=== PATIENT | male | born 1995 | race Caucasian/White ===

== ENCOUNTER 2023-03-06 07:29 | Outpatient (OUT) | payer BC, MEDICARE, MEDICAID, SELFPAY ==
--- NOTE | 2023-03-06 08:27 | CA_ITS ---
Patient Name: HERO DYE MR#: [id number] : 1995 Exam Date: 03/06/2023 Ordering Doctor: DR PING DONALDSON M.D. ECHOCARDIOGRAM REPORT PROCEDURE: CA ECHO DOPPLER COMPLETE INDICATIONS: PVCs COMPARISON: None. DESCRIPTION: COMPLETE ECHOCARDIOGRAM Real-time transthoracic echocardiography with 2D, M-mode, spectral and color flow Doppler performed. QUALITY: Technical quality was limited. LEFT VENTRICLE: Normal chamber size. Global left ventricular systolic function is normal. LV EF: Visual estimation of left ventricular ejection fraction is 55-60%. DIASTOLIC: ATRIAL SEPTUM: LEFT ATRIUM: Normal chamber size. RIGHT ATRIUM: Mild dilatation. RIGHT VENTRICLE: Normal chamber size. Normal right ventricular systolic function. TRICUSPID VALVE: Normal mobility and thickness. No stenosis with trivial regurgitation. No evidence of pulmonary hypertension. RVSP 22 mmHg MITRAL VALVE: Normal mobility and thickness. No evidence of mitral valve stenosis. There is no mitral annular calcification. Trivial mitral regurgitation. AORTIC VALVE: Normal trileaflet appearance. No visible sclerosis. Normal leaflet mobility. No evidence of aortic valve stenosis. No aortic regurgitation. AORTIC ROOT: Normal diameter and appearance. PULMONIC VALVE: Normal thickness and mobility. No stenosis. Trivial regurgitation. PERICARDIUM: No evidence of pericardial effusion. IVC: Not well visualized. PLEURA: CONCLUSION: 1. Normal ventricular systolic function. LVEF is 55 to 60%. 2. No significant valvular dysfunction. 3. No pericardial effusion. 4. Frequent PVCs noted during the exam. Adult Echocardiography Procedure Report Left Ventricle LVEDD (3.7 - 5.6 cm): 4.78 cm LVESD (2.2 - 4.0 cm): 3.34 cm LVIVS thickness (0.6 - 1.2 cm): 1.28 cm LVPW thickness (0.5 - 1.0 cm): 1.17 cm LVOT Max Gradient: 3.29 mm[Hg] LVOT Area (cm2): 0.91 m/s Peak Velocity (LVOT): 0.91 m/s Mean Velocity (LVOT): 0.60 m/s LVOT Diameter 2.20 cm Left Atrium LA Volume Index (2D A2C): 33.58 ml/m2 Left Atrium Systolic Dimension: 4.62 cm Mitral Valve MV E to A Ratio: 2.37 Mitral Valve A-Wave Peak Velocity: 0.40 m/s Mitral Valve E-Wave Peak Velocity: 0.95 m/s Right Ventricle RV Internal Diastolic Dimension: 4.00 cm Aorta AO Root Diam: 3.16 cm Aortic Valve AoV Area (Peak Joaquin): 2.70 cm2, 2.70 cm2 AoV Area (VTI): 2.64 cm2, 2.64 cm2 Peak Velocity(Antegrade Flow): 1.28 m/s Peak Gradient(Antegrade Flow): 6.57 mm[Hg] Mean Velocity(Antegrade Flow): 0.88 m/s Mean Gradient(Antegrade Flow): 3.43 mm[Hg] Velocity Time Integral: 27.82 cm Tricuspid Valve Peak Velocity (Regurgitant Flow): 1.26 m/s, 2.16 m/s Pulmonic Valve Peak Velocity: 1.13 m/s Peak Gradient: 5.13 mm[Hg] Right Atrium Right Atrium Systolic Pressure: 88.44 ml, 88.44 ml Dictated by: Ping Donladson M.D. on 03/06/2023 at 17:43 Approved by: Ping Donaldson M.D. on 03/06/2023 at 17:45
== END 2023-03-06 07:30 | disposition home or self-care (01) ==
PROVIDERS: PCP Family Medicine; Visit Provider Internal Medicine Interventional Cardiology
DX: I49.3 Ventricular premature depolarization (principal)
CPT/HCPCS: 93306

== ENCOUNTER 2023-08-01 13:53 | Outpatient (OUT) | payer MEDICARE, MEDICAID, SELFPAY ==
[2023-08-01 14:56] LABS: Estimated Average Glucose 103 mg/dL; Glycohemoglobin A1C 5.2 % (4.5-6.2)
[2023-08-01 15:08] LABS: Alanine Aminotransferase 33 U/L (16-63); Albumin Globulin Ratio 1.1; Alkaline Phosphatase 70 U/L (46-116); Aspartate Amino Transferase 16 U/L (15-37); BUN Creatinine Ratio 11.1; Bilirubin Total 0.8 mg/dL (0.2-1.0); Calcium 9.1 mg/dL (8.5-10.1); Carbon Dioxide 27.9 mmol/L (21.0-32.0); Chloride 105 mmol/L (98-107); Chol HDL Ratio 4.1; Cholesterol 195 mg/dL (<=200); Estimated GFR (African America >60 (>=60); Estimated GFR (Non-African Ame >60 (>=60); Free T3 3.39 pg/mL (2.18-3.98); Globulin 3.7 g/dL; Glucose 93 mg/dL (74-106); HDL Cholesterol 47 mg/dL (40-60); LDL Cholesterol Calculated 125.8 mg/dL; Potassium 3.9 mmol/L (3.5-5.1); Sodium 142 mmol/L (136-145); Thyroid Stimulating Hormone 0.982 uIU/mL (0.358-3.740); Total Protein 7.7 g/dL (6.4-8.2); Triglycerides 111 mg/dL (<=150); VLDL CHOLESTEROL 22.2 mg/dL
[2023-08-01 15:34] LABS: Basophils Percent Auto 0.2 % (0.2-2.0); Eosinophils Absolute Auto 0.1 10^3/uL (0.0-0.7); Eosinophils Percent Auto 0.8 % (0.9-7.0); Hematocrit 47.2 % (42.0-54.0); Hemoglobin 15.1 g/dL (14.0-18.0); Immature Granulocytes Abs Auto 0.04 10^3/uL (0.00-0.03); Immature Granulocytes Pct Auto 0.4 % (0.0-0.5); Lymphocytes Absolute Auto 2.2 10^3/uL (1.2-3.8); Lymphocytes Percent Auto 21.4 % (20.5-60.0); Mean Corpuscular Hemoglobin 25.1 pg (25.9-34.0); Mean Corpuscular Volume 78.5 fL (80.0-94.0); Mean Platelet Volume 10.6 fL (9.5-13.5); Monocytes Absolute Auto 0.7 10^3/uL (0.3-0.8); Monocytes Percent Auto 6.8 % (1.7-12.0); Neutrophils Absolute Auto 7.3 10^3/uL (1.4-6.5); Neutrophils Percent Auto 70.4 % (43.0-75.0); Platelet Count 274 10^3/uL (150-450); Red Blood Count 6.01 10^6/uL (4.70-6.10); Red Cell Distribution Width 14.2 % (11.0-15.0); White Blood Count 10.4 10^3/uL (4.0-11.0)
[2023-08-02 06:09] LABS: Insulin 23.8 uIU/mL (2.6-24.9)
== END 2023-08-01 13:54 | disposition home or self-care (01) ==
LOC: LAB 13:56
PROVIDERS: PCP Family Medicine; Visit Provider Family Medicine
DX: Z00.00 Encounter for general adult medical examination without abnormal findings (principal)
CPT/HCPCS: 36415; 80053; 80061; 83036; 83525; 84436; 84443; 84481; 85025

== ENCOUNTER 2024-10-27 08:54 | Outpatient (OUT) | payer MEDICARE, MEDICAID, SELFPAY ==
--- NOTE | 2024-10-27 09:00 | CA_ITS ---
Patient Name: HERO DYE MR#: [id number] : 1995 Exam Date: 10/27/2024 Ordering Doctor: DR PING DONALDSON M.D. ECHOCARDIOGRAM REPORT PROCEDURE: CA ECHO DOPPLER COMPLETE INDICATIONS: Premature ventricular contractions COMPARISON: None. DESCRIPTION: COMPLETE ECHOCARDIOGRAM Real-time transthoracic echocardiography with 2D, M-mode, spectral and color flow Doppler performed. QUALITY: Technically difficult study due to poor acoustics. LEFT VENTRICLE: Normal chamber size. Normal left ventricular wall thickness. Normal systolic function. LV EF: Normal left ventricular ejection fraction, (55%). DIASTOLIC: Normal diastolic function. ATRIAL SEPTUM: LEFT ATRIUM: Normal chamber size. RIGHT ATRIUM: Normal chamber size. RIGHT VENTRICLE: Normal chamber size. Normal right ventricular systolic function. TRICUSPID VALVE: Normal mobility and thickness. No stenosis with no regurgitation. MITRAL VALVE: Normal mobility and thickness. No evidence of mitral valve stenosis. There is no mitral annular calcification. No mitral regurgitation. AORTIC VALVE: Normal trileaflet appearance. No visible sclerosis. Normal leaflet mobility. No evidence of aortic valve stenosis. No aortic regurgitation. AORTIC ROOT: Normal diameter and appearance. PULMONIC VALVE: Normal thickness and mobility. No stenosis. No regurgitation. PERICARDIUM: No evidence of pericardial effusion. IVC: Not well visualized. PLEURA: CONCLUSION: 1. Normal ventricular size and systolic function. LVEF is estimated at 55%. 2. No significant valvular dysfunction. 3. Normal diastolic function. 4. No pericardial effusion. Adult Echocardiography Procedure Report Left Ventricle LVEDD (3.7 - 5.6 cm): 4.50 cm LVESD (2.2 - 4.0 cm): 2.77 cm LVIVS thickness (0.6 - 1.2 cm): 0.97 cm LVPW thickness (0.5 - 1.0 cm): 0.96 cm e': 0.13 m/s E - e': 5.05 LVOT Max Gradient: 1.98 mm[Hg] LVOT Area (cm2): 0.70 m/s Peak Velocity (LVOT): 0.70 m/s Mean Velocity (LVOT): 0.46 m/s LVOT Diameter 2.54 cm Left Atrium LA Volume Index (2D A2C): 23.22 ml/m2 Left Atrium Systolic Dimension: 4.19 cm Mitral Valve MV E to A Ratio: 1.75 Mitral Valve A-Wave Peak Velocity: 0.37 m/s Mitral Valve E-Wave Peak Velocity: 0.65 m/s Right Ventricle Aorta AO Root Diam: 3.13 cm Aortic Valve AoV Area (Peak Joaquin): 3.00 cm2, 3.00 cm2 AoV Area (VTI): 2.79 cm2, 2.79 cm2 Peak Velocity(Antegrade Flow): 1.19 m/s Peak Gradient(Antegrade Flow): 5.63 mm[Hg] Mean Velocity(Antegrade Flow): 0.80 m/s Mean Gradient(Antegrade Flow): 3.11 mm[Hg] Velocity Time Integral: 24.34 cm Tricuspid Valve Pulmonic Valve Peak Gradient: 4.33 mm[Hg], 3.64 mm[Hg] Right Atrium Right Atrium Systolic Pressure: 39.55 ml, 39.55 ml Dictated by: Ping Donaldson M.D. on 10/27/2024 at 17:32 Approved by: Ping Donaldson M.D. on 10/27/2024 at 17:37
--- OUTSIDE RECORDS SUMMARY | 2024-10-27 09:01 | XMS_ITS | Clinical Summary ---
Author Organization [facility] Address [address] [place] [address] Care Team Providers Care Cullet Crusher Name Role Phone Surya Phelps MD Primary Care Provider [phone] Allergies Active Allergy Reactions Criticality Noted Date Comments Sulfa (Sulfonamide Antibiotics) Low 10/07 Medications guanFACINE (Intuniv) 4 mg 24 hr tablet Take 1 tablet by mouth in the morning. Active loratadine (Claritin) 10 mg tablet Take 1 tablet by mouth in the morning. Active montelukast (Singulair) 10 mg tablet Take 1 tablet by mouth at bedtime. Active sertraline (Zoloft) 100 mg tablet Take 1 tablet by mouth in the morning. Active methylphenidate (Concerta) 54 mg ER tablet Take 54 mg by mouth in the morning. Do not crush, chew, or split. Active simvastatin (Zocor) 40 mg tabletIndications:M ixed hyperlipidemia Take 1 tablet (40 mg) by mouth at bedtime. 90 tablet 3 3 Active metoprolol succinate XL (Toprol-XL) 25 mg 24 hr tabletIndications:M ultiple premature ventricular complexes take 1 AND 1/2 tablets by mouth every morning 135 tablet 3 4 Active Active Problems Problem Noted Date Diagnosed Date Multiple premature ventricular complexes 020 Assessment & Plan (11/22/2021 12:15 PM EDT): No concerning symptoms, states palpitations are stable Doing well with metoprolol Continue metoprolol Immunizations Immunization Administration Dates Next Due DTaP, Unspecified 10/05/2003,,04/16/1998,1997,1997 Hep A, Adult 05/11/2019,11/10/2018 Hep B, Adolescent or Pediatric 1997 Hep B, adult 05/11/2019,12/10/2018,11/10/2018 HiB, unspecified 12/14/1998,1997 Hib / Hep B 04/16/1998,1997 IPV 10/05/2003,1997,1997 Influenza, injectable, MDCK, preservative free, quadrivalent 01/30/2021 Influenza, injectable, quadr ivalent, preservative free 10/06/2018 MMR 10/05/2003,12/14/1998 OPV 12/14/1998 Tdap 10/06/2018 Unspecified Sars-Cov-2 Vaccination 01/30/2021,,06/12/2020 Family History Medical History Relation Name Comments Heart failure Maternal Grandmother Heart failure Mother's Brother Relation Name Status Comments Maternal Grandmother Mother's Brother Social History Tobacco Use Types Packs/Day Years Used Date Smoking Tobacco: Never Smokeless Tobacco: Never Tobacco Cessation:Counseling Given: Not Answered Alcohol Use Standard Drinks/Week Comments Never 0 (1 standard drink = 0.6 oz pur e alcohol) [place] Safety & Environment Answer Date Rec orded Fear of Current or Ex-Partner Not on file Emotionally Abused Not on file 03/29/2023 Physically Abused Not on file 03/29/2023 Sexually Abused Not on file 03/29/2023 Physically or Sexually Abused Not on file Sex and Gender Information Value Date Recorded Sex Assigned at Not on file Legal Sex Male 12:23 AM EDT Gender Identity Not on file Sexual Orientation Not on file Last Filed Vital Signs Vital Sign Reading Time Taken Comments Blood Pressure 102/58 12/20/2022 11:16 AM EST Pulse 62 12/20/2022 11:16 AM EST Temperature - - Respiratory Rate - - Oxygen Saturation 99% 12/20/2022 11:16 AM EST Inhaled Oxygen Concentration - - Weight 142 kg (312 lb 3.2 oz) 12/20/2022 11:16 A M EST Height 188 cm (6' 2 ) 12/20/2022 11:16 AM EST Body Mass Index 40.08 12/20/2022 11:16 AM EST Plan of Treatment Health Maintenance Due Date Last Done Comments Medicare Annual Wellness (AWV) 1997 Depression Screening 2009 Varicella Vaccines (1 of 2 - 13+ 2-dose series) 2010 COVID-19 Vaccine ( season) 2024 01/30/2021, 01/30/2021, 07/03/2020, Additional history exists Influenza Vaccine (#1) 2024 01/30/2021, 2018 Adult Tetanus 10/06/2028 10/06/2018 Zoster Vaccines (1 of 2) 04/22/2047 HIB Vaccines Completed 12/14/1998, 04/05, 1997, Additional history exists IPV Vaccines Completed 10/05/2003, 10/1998, 1997, Additional history exists HPV Vaccines Aged Out No longer eligi ble based on patient's age to complete this topic Meningococcal B Vaccine Aged Out No l onger eligible based on patient's age to complete this topic Meningococcal Vaccine Aged Out No abner danie eligible based on patient's age to complete this topic Pneumococcal Vaccine: Pediatrics (0 to 5 Years) and At-Risk Patients (6 to 64 Years) Aged Out No longer eligible based on patient's age to complete this topic Rotavirus Vaccines Aged Out No longer eligible based on patient's age to complete this topic Insurance [place]ICARE [place] Care Teams Cullet Crusher Relationship Specialty Start Date End Date Surya Phelps MD [address] [place] [address] PCP - General 10/27/21
--- OUTSIDE RECORDS SUMMARY | 2024-10-27 09:01 | XMS_ITS | Encounter Summary ---
Author Organization [facility] Address [address] [place] [address] Care Team Providers Care Director Ambulatory Name Role Phone Surya Phelps MD Primary Care Provider [phone] Reason for Visit * Reason Comments Med Refill Encounter Details Date Type Department Care Team (Late st Contact Info) Description 01/05/2022 Refill [facility] [address] [place] [phone] Casey Donaldson MD [address] [facility] [address] [facility] [place] [phone] Multiple premature ventricular complexes Social History Tobacco Use Types Packs/Day Years Used Date Smoking Tobacco: Never Smokeless Tobacco: Never Alcohol Use Standard Drinks/Week Comments Never 0 (1 standard drink = 0.6 oz pur e alcohol) Sex and Gender Information Value Date Recorded Sex Assigned at Not on file Legal Sex Male 12:23 AM EDT Gender Identity Not on file Sexual Orientation Not on file documented as of this encounter Miscellaneous Notes * Telephone Encounter - Marielos Mcknight - 01/06/2022 2:05 PM EST Approving, but needs appt for additional refills. documented in this encounter Plan of Treatment Not on file documented as of this encounter Visit Diagnoses Diagnosis Multiple premature ventricular complexes documented in this encounter Care Teams Director Ambulatory Relationship Specialty Start Date End Date Surya Phelps MD [address] [facility] [address] [address] PCP - General 10/27/21 documented as of this encounter
--- OUTSIDE RECORDS SUMMARY | 2024-10-27 09:02 | XMS_ITS | Patient Health Record ---
Author Organization [facility] [place] Address [address] [place] [address] Care Team Providers Care Shipping And Receiving Name Role Phone Artis Phelps Primary Care Provider Allergies Allergen (clinical drug ingredient) Drug/Non Drug Allergy documented on EMR Reaction Allergy Type Onset Date Status Substance with sulfonamide structure and antibacterial mechanism of action (substance) Sulfa Antibiotics unknown Drug Allergy Active Reason For Referral No Information Medications Medication SIG (Take, Route, Frequency, Duration) Notes Start Date End Date Status guanFACINE HCl ER 4 MG take 1 tablet Ora lly once a day; Duration: 90 days Active Simvastatin 40 MG 1 tablet in the even ing Orally Once a day; Duration: 90 days Active Methylphenidate HCl ER (OSM) 54 MG take 1 tablet by mouth every morning; Duration: 30 10/30/2023 Active Metoprolol Succinate ER 50 MG 1 tablet O rally Once a day; Duration: 90 days Active Sertraline HCl 100 MG 1 tablet Orally On ce a day; Duration: 90 days Active Montelukast Sodium 10 MG 1 tablet Orally Once a day; Duration: 90 days Active Social History Tobacco Use: Social History Observation Description Date Details (start date - stop date) Never Smoker NA - NA Tobacco Use/Smoking Question Answer Notes Patient is a nonsmoker Alcohol Screen (Audit-C) Question Answer Notes Did you have a drink containing alcohol in the p ast year? No Points 0 Interpretation Negative AUDIT-C (Standard) Question Answer Notes Did you have a drink containing alcohol in the p ast year? No Points 0 Interpretation Negative Problems Problem Type SNOMED Code ICD Code Onset Dates Problem Status W/U Status Risk Notes Problem Mixed hyperlipidemia (281338957) Mixed hyperlipidemia (E78.2) Active confirmed Problem Ventricular premature depolarization (260261818) Ventricular premature depolarization (I49.3) Active confirmed Problem Palpitations (65697636) Palpitations (R00.2) Active confirmed Problem Dyspnea (830284687) Dyspnea (R06.00) Active confirmed Problem Insomnia (848707830) Insomnia (G47.00) Active confirmed Problem Migraine (40382947) Migraine (G43.909) Active confirmed Problem Well adult (118893424) Well adult (Z00.00) Active confirmed Problem Autism (36097373) Autism (F84.0) Active confirm ed Problem Attention deficit hyperactivity disorder (803434128) Attention deficit hyperactivity disorder (ADHD), unspecified ADHD type (F90.9) Active confirmed Problem Overweight (869639126) Over weight (E66.3) Active confirmed Problem Premature ventricular complex (519777928) Premature ventricular complex (I49.3) Active confirmed Problem Mild intellectual disability (49522982) Mild intellectual disability (F70) Active confirmed Problem Attention deficit hyperactivity disorder (107285717) ADHD (F90.9) Active confirmed Encounters Encounter Location Date Provider Diagnosis [facility] [address] [place] [address] 10/29/2023 Artis Phelps [facility] [address] [place] [address] 10/29/2023 Artis Phelps [facility] [address] [place] [address] 02/20/2024 Artis Phelps Plan Of Treatment Pending Test Test Name Order Date CMP (COMPLETE METABOLIC PANEL) 3 CMP (COMPLETE METABOLIC PANEL) 4 HEMOGLOBIN A1C (GLYCO) 07/25/2023 HEMOGLOBIN A1C (GLYCO) 06/19/2022 INSULIN, TOTAL 07/25/2023 IRON, TOTAL 06/19/2022 LIPID PANEL (CHOL/TRIG/HDL/LDL) 06/20/19 23 LIPID PANEL (CHOL/TRIG/HDL/LDL) 07/25/19 24 CBC WITH DIFF 07/25/2023 CBC WITH DIFF 06/19/2022 VITAMIN D, 25 LEVEL (TOTAL) 06/19/2022 Insulin Level 06/19/2022 THYROID PANEL (T4/TSH/FREE T3) 3 THYROID PANEL (T4/TSH/FREE T3) 4 Insurance Providers Payer Name Payer Address Payer Phone Subscriber Number Group Number Insured Name Patient Relationship to Insured Coverage Start Date Coverage End Date [place] [address] [place] [address] [id number] Tonny Campos Self - patient is the insured 3 [place] 2[place] [address] [place] [id number] Tonny Campos Self - patient is the insured 3 Medical (General) History Medical History History ICD Code Over weight E66.3 Dyspnea R06.00 Premature ventricular complex I49.3 Palpitations R00.2 Mild intellectual disability F70 Migraine G43.909 Insomnia G47.00 ADHD F90.9 Autism F84.0 Surgical History Surgery Date(Month/Year) Eye surgery as a child
--- OUTSIDE RECORDS SUMMARY | 2024-10-27 09:09 | XMS_ITS | CCD ---
Author Organization [facility] Care Team Providers Care [place] Strip Inspector Name Role Phone DR MARIELY PHELPS Admitting Unavailable DR MARIELY PHELPS Primary Care Unavailable DR MARIELY PHELPS Attending Unavailable DR MARIELY PHELPS Admitting Unavailable DR MARIELY PHELPS Primary Care Unavailable DR MARIELY PHELPS Consulting Unavailable DR MARIELY PHELPS Attending Unavailable PING DONALDSON Attending Unavailable Allergies Allergy Classification Reported Allergen(s) Allergy Type Date of Onset Reaction(s) Facility (1 source) Sulfonamides (Antibiotic); Translations: [SULFA (SULFONAMIDE ANTIBIOTICS)] Propensity to adverse reactions to drug (disorder) 2 [facility] Repository Problems Problem Classification Problem Date Documented Da te Episodic/Chronic Cardiac dysrhythmias (2 sources) Ventricular premature depolarization; Translations: [Ventricular premature depolarization] Onset: 12-20-2022 Chronic Deficiency and other anemia (1 source) Anemia, unspecified; Translations: [ANEMIA UNSPECIFIED] Onset: 11-25-2021 Episodic Diabetes mellitus without complication (1 source) Other abnormal glucose; Translations: [OTHER ABNORMAL GLUCOSE] Onset: 11-25-2021 Episodic Disorders of lipid metabolism (2 sources) Mixed hyperlipidemia; Translations: [Mixed hyperlipidemia] Onset: 12-20-2022 Chronic Disorders usually diagnosed in infancy, childhood, or adolescence (1 source) Autistic disorder; Translations: [AUTISTIC DISORDER] Onset: 11-25-2021 Chronic Other nutritional; endocrine; and metabolic disorders (1 source) Overweight; Translations: [OVERWEIGHT] Onset: 11-25-2021 Episodic Residual codes; unclassified (4 sources) Insomnia, unspecified; Translations: [INSOMNIA UNSPECIFIED] Onset: 11-22-2021 Episodic Results Test Name Value Interpretation Reference Range Facility 36on 08-24-2023 36 Did you want to make any changes after he wore 3 day Holter monitor? Results are scanned into media. Please advise. Thanks. Normal [facility] 36on 03-29-2023 36 Spoke with patient's mother and she received my message from last week. I advised her I would put in tickler for Delroy to come back in 3 months for another Holter monitor. She verbalized understanding. [facility] 36on 03-21-[address] Donaldson - he would like patient to increase metoprolol to 50mg daily after Holter monitor. I LM on patient's mother's VM. He would also like repeat 3 day Holter monitor in 3 months. [facility] Office Visiton 12-20-2022 Follow-up visit [id number] Hero Dye Harriet 1995 M Date Provider Department Center 12/20/2022 PING MENDEZ [facility] Family History Problem Relation Age of Onset Heart failure Mother's Brother Heart failure Maternal Grandmother Family Status - Relation Status Age at Mother's Brother Maternal Grandmother Level of Service:61394 PA OFFICE/OUTPATIENT ESTABLISHED MOD MDM 30-39 MIN Reason for Visit and Comments: Follow-up [869627] [facility] INSULINon 11-23-2021 Insulin 29.2 uIU/mL Critically high 2.6-24.9 [facility] Comment on above: Performed By: #### I NSULIN #### [facility] [address] [place] [address] Dr. Darien Ponce CBC AUTO DIFFon 11-22-2021 BASO # 0.0 103/ul Normal 0.0-0.1 [facility] Comment on above: Performed By: #### C BC #### [facility] [address] [place] [address] Dr. Darien Ponce Basophils/100 WBC (Bld) 0.4 % Normal 0.2-2.0 [facility] Comment on above: Performed By: #### C BC #### [facility] [address] [place] [address] Dr. Darien Ponce EO # 0.2 103/ul Normal 0.0-0.7 [facility] Comment on above: Performed By: #### C BC #### [facility] [address] [place] [address] Dr. Darien Ponce Eosinophils/100 WBC (Bld) 2.1 % Normal 0.9-7.0 [facility] Comment on above: Performed By: #### C BC #### [facility] [address] [place] [address] Dr. Darien Ponce Erythrocyte distribution width (RBC) [Ratio] 14.7 % Normal 11.0-15.0 [facility] Comment on above: Performed By: #### C BC #### [facility] [address] [place] [address] Dr. Darien Ponce Hematocrit (Bld) [Volume fraction] 50.9 % Normal 42.0-54.0 [facility] Comment on above: Performed By: #### C BC #### [facility] [address] [place] [address] Dr. Darien Ponce Hemoglobin (Bld) [Mass/Vol] 16.2 g/dL Normal 14.0-18.0 [facility] Comment on above: Performed By: #### C BC #### [facility] [address] [place] [address] Dr. Darien Pocne IG # 0.06 10e3/ul Critically high 0.00-0.03 [facility] Comment on above: Performed By: #### C BC #### [facility] [address] [place] [address] Dr. Darien Ponce IG % 0.6 % Critically high 0.0-0.5 [facility] Comment on above: Performed By: #### C BC #### [facility] [address] [place] [address] Dr. Darien Ponce LYMPH # 2.4 103/ul Normal 1.2-3.8 [facility] Comment on above: Performed By: #### C BC #### [facility] [address] [place] [address] Dr. Darien Ponce Lymphocytes/100 WBC (Bld) 22.4 % Normal 20.5-60.0 [facility] Comment on above: Performed By: #### C BC #### [facility] [address] [place] [address] Dr. Darien Ponce MANUAL DIFF REQ NO Normal [facility] Comment on above: Performed By: #### C BC #### [facility] [address] [place] [address] Dr. Darien Ponce MCH (RBC) [Entitic mass] 25.6 pg Critically low 25.9-34.0 [facility] Comment on above: Performed By: #### C BC #### [facility] [address] [place] [address] Dr. Darien Ponce MCHC (RBC) [Mass/Vol] 31.8 g/dL Normal 29.9-35.2 [facility] Comment on above: Performed By: #### C BC #### [facility] [address] [place] [address] Dr. Darien Ponce MCV (RBC) [Entitic vol] 80.3 fL Normal 80.0-94.0 [facility] Comment on above: Performed By: #### C BC #### [facility] [address] [place] [address] Dr. Darien Ponce MONO # 0.7 103/ul Normal 0.3-0.8 [facility] Comment on above: Performed By: #### C BC #### [facility] [address] [place] [address] Dr. Darien Ponce Monocytes/100 WBC (Bld) 6.8 % Normal 1.7-12.0 [facility] Comment on above: Performed By: #### C BC #### [facility] [address] [place] [address] Dr. Darien Ponce NEUT # 7.2 103/ul Critically high 1.4-6.5 [facility] Comment on above: Performed By: #### C BC #### [facility] [address] [place] [address] Dr. Darien Ponce Neutrophils/100 WBC (Bld) 67.7 % Normal 43.0-75.0 [facility] Comment on above: Performed By: #### C BC #### [facility] [address] [address] [address] Darien Ponce Platelet mean volume (Bld) [Entitic vol] 9.9 fL Normal 9.5-13.5 [facility] Comment on above: Performed By: #### C BC #### [facility] [address] [address] [address] Darien Ponce PLT 303 103/ul Normal 150-450 [facility] Comment on above: Performed By: #### C BC #### [facility] [address] [address] [address] Darien Ponce RBC 6.34 106/ul Critically high 4.70-6.10 [facility] Comment on above: Performed By: #### C BC #### [facility] [address] [address] [address] Darien Ponce WBC 10.6 103/ul Normal 4.0-11.0 [facility] Comment on above: Performed By: #### C BC #### [facility] [address] [address] [address] Darien Ponce FREE THYROXINE INDEX T7on FTI 3.07 Normal 1.30-4.50 [facility] Comment on above: Performed By: #### C MP, TSH, LIPID, T7 #### [facility] [address] [address] [address] Darien Ponce T3U 33.0 % Normal 33.0-40.0 [facility] Comment on above: Performed By: #### C MP, TSH, LIPID, T7 #### [facility] [address] [address] [address] Darien Ponce T4 [Mass/Vol] 9.30 ug/dL Normal 4.50-12.10 [facility] Comment on above: Performed By: #### C MP, TSH, LIPID, T7 #### [facility] [address] [address] [address] Darien Ponce GLYCOHEMOGLOBIN A1Con 2021 ADA RECOMMENDATION SEE BELOW Normal [facility] Comment on above: Result Comment: ADA RECOMMENDED LIMIT 4.0 - 6.0 ADA THERAPEUTIC TARGET < 7.0 ACTION SUGGESTED > 7.0 Performed By: #### A 1C #### [facility] [address] [address] [address] Darien Ponce Glucose [Mass/Vol] 100 mg/dL Normal [facility] Comment on above: Performed By: #### A 1C #### [facility] [address] [address] [address] Darien Ponce HbA1c (Bld) [Mass fraction] 5.1 % Normal 4.5-6.2 [facility] Comment on above: Performed By: #### A 1C #### [facility] [address] [place] [address] Dr. Darien Ponce IRONon 11-22-2021 Iron [Mass/Vol] 76.0 ug/dL Normal 65.0-175.0 [facility] Comment on above: Performed By: #### I ELSA #### [facility] [address] [place] [address] Dr. Darien Ponce LIPID PROFILEon 11-22-2021 CHOL-HDL RATIO NORM SEE BELOW Normal [facility] Comment on above: Result Comment: 3.3 - 4.4 LOW RISK 4.4 - 7.1 AVERAGE RISK 7.1 - 11.0 MODERATE RISK >11.0 HIGH RISK Performed By: #### C MP, TSH, LIPID, T7 #### [facility] [address] [place] [address] Dr. Darien Ponce Cholesterol [Mass/Vol] 250 mg/dL Critically high <=200 [facility] Comment on above: Performed By: #### C MP, TSH, LIPID, T7 #### [facility] [address] [place] [address] Dr. Darien Ponce Cholesterol in HDL [Mass/Vol] 46 mg/dL Normal 40-60 [facility] Comment on above: Performed By: #### C MP, TSH, LIPID, T7 #### [facility] [address] [place] [address] Dr. Darien Ponce Cholesterol in LDL [Mass/Vol] 170.0 mg/dL Normal [facility] Comment on above: Performed By: #### C MP, TSH, LIPID, T7 #### [facility] [address] [address] [address] Darien Ponce Cholesterol.total/Cho lesterol in HDL [Mass ratio] 5.4 {ratio} Normal [facility] Comment on above: Performed By: #### C MP, TSH, LIPID, T7 #### [facility] [address] [address] [address] Darien Ponce HDL NORMAL > or = 60 mg/dl - LOW CARDIOVASCULAR RISK <40 mg/dl - HIGH CARDIOVASCULAR RISK Normal [facility] Comment on above: Performed By: #### C MP, TSH, LIPID, T7 #### [facility] [address] [place] [address] Dr. Darien Ponce LDL CALC NORMAL SEE BELOW Normal [facility] Comment on above: Result Comment: <100 mg/dl OPTIMAL 100 - 129 mg/dl NEAR OR ABOVE OPTIMAL 130 - 159 mg/dl BORDERLINE HIGH 160 - 189 mg/dl HIGH >190 mg/dl VERY HIGH Performed By: #### C MP, TSH, LIPID, T7 #### [facility] [address] [address] [address] Darien Ponce Triglyceride [Mass/Vol] 170 mg/dL Critically high <=150 [facility] Comment on above: Performed By: #### C MP, TSH, LIPID, T7 #### [facility] [address] [address] [address] Darien Ponce VLDL CALC 34.0 mg/dL Normal [facility] Comment on above: Performed By: #### C MP, TSH, LIPID, T7 #### [facility] [address] [address] [address] Darien Ponce PROF 14(COMP METB)on 022 Albumin [Mass/Vol] 4.1 g/dL Normal 3.4-5.0 [facility] Comment on above: Performed By: #### C MP, TSH, LIPID, T7 #### [facility] [address] [address] [address] Darien Ponce Albumin/Globulin [Mass ratio] 1.1 {ratio} Normal [facility] Comment on above: Performed By: #### C MP, TSH, LIPID, T7 #### [facility] [address] [address] [address] Darien Ponce ALP [Catalytic activity/Vol] 78 U/L Normal 46-116 [facility] Comment on above: Performed By: #### C MP, TSH, LIPID, T7 #### [facility] [address] [address] [address] Dairen Ponce ALT [Catalytic activity/Vol] 29 U/L Normal 16-63 [facility] Comment on above: Performed By: #### C MP, TSH, LIPID, T7 #### [facility] [address] [address] [address] Darien Ponce Anion gap [Moles/Vol] 9.8 mmol/L Normal [facility] Comment on above: Performed By: #### C MP, TSH, LIPID, T7 #### [facility] [address] [place] [address] Dr. Darien Ponce AST [Catalytic activity/Vol] 14 U/L Critically low 15-37 [facility] Comment on above: Performed By: #### C MP, TSH, LIPID, T7 #### [facility] [address] [place] [address] Dr. Darien Ponce Bilirubin [Mass/Vol] 0.5 mg/dL Normal 0.2-1.0 [facility] Comment on above: Performed By: #### C MP, TSH, LIPID, T7 #### [facility] [address] [place] [address] Dr. Darien Ponce Calcium [Mass/Vol] 9.5 mg/dL Normal 8.5-10.1 [facility] Comment on above: Performed By: #### C MP, TSH, LIPID, T7 #### [facility] [address] [place] [address] Dr. Darien Ponce Chloride [Moles/Vol] 102 mmol/L Normal 98-107 [facility] Comment on above: Performed By: #### C MP, TSH, LIPID, T7 #### [facility] [address] [place] [address] Dr. Darien Ponce CO2 [Moles/Vol] 30.2 mmol/L Normal 21.0-32.0 [facility] Comment on above: Performed By: #### C MP, TSH, LIPID, T7 #### [facility] [address] [address] [address] Darien Ponce Creatinine [Mass/Vol] 0.82 mg/dL Normal 0.70-1.30 [facility] Comment on above: Performed By: #### C MP, TSH, LIPID, T7 #### [facility] [address] [address] [address] Darien Ponce EGFR-AF CHADIAN >60 Normal >=60 [facility] Comment on above: Performed By: #### C MP, TSH, LIPID, T7 #### [facility] [address] [address] [address] Darien Ponce EGFR-NON AF CHADIAN >60 Normal >=60 [facility] Comment on above: Performed By: #### C MP, TSH, LIPID, T7 #### [facility] [address] [address] [address] Darien Ponce Globulin (S) [Mass/Vol] 3.8 g/dL Normal [facility] Comment on above: Performed By: #### C MP, TSH, LIPID, T7 #### [facility] [address] [address] [address] Darien Ponce Glucose [Mass/Vol] 86 mg/dL Normal 74-106 [facility] Comment on above: Performed By: #### C MP, TSH, LIPID, T7 #### [facility] [address] [address] [address] Darien Ponce Potassium [Moles/Vol] 4.0 mmol/L Normal 3.5-5.1 [facility] Comment on above: Performed By: #### C MP, TSH, LIPID, T7 #### [facility] [address] [address] [address] Darien Ponce Protein [Mass/Vol] 7.9 g/dL Normal 6.4-8.2 [facility] Comment on above: Performed By: #### C MP, TSH, LIPID, T7 #### [facility] [address] [place], [place] [address] Dr. Darien Ponce Sodium [Moles/Vol] 138 mmol/L Normal 136-145 [facility] Comment on above: Performed By: #### C MP, TSH, LIPID, T7 #### [facility] [address] [address] [address] Darien Ponce Urea nitrogen [Mass/Vol] 14.0 mg/dL Normal 7.0-18.0 [facility] Comment on above: Performed By: #### C MP, TSH, LIPID, T7 #### [facility] [address] [address] [address] Darien Ponce Urea nitrogen/Creatinine [Mass ratio] 17.1 mg/mg Normal [facility] Comment on above: Performed By: #### C MP, TSH, LIPID, T7 #### [facility] [address] [address] [address] Darien Ponce TSHon 11-22-2021 TSH 1.926 uIU/mL Normal 0.358-3.740 [facility] Comment on above: Performed By: #### C MP, TSH, LIPID, T7 #### [facility] [id number] Darien Ponce Encounters Encounter Date Encounter Type Care Provider Facility Start: 12-20-2022 End: 12-20-2022 ambulatory [facility] Start: 02-19-[address] MARIELY PHELPS Facility :[facility] Start: 11-22-2021 End: 11-23-[address] MARIELY PHELPS Facility:[facility] Payers Date Payer Category Payer Unknown [id number] 2020 Medicaid [id number] 2020 Medicare [id number] 1995 Unknown [id number] 1995 Unknown [id number] 1957 Self-pay 1957 Unknown [id number] 1957 Unknown [id number] Progress note 12-20-2022 Note Date & Type Note Facility 12-20-2022 Note [place] [facility] Subjective Hero Dye is a 27 y.o. year old male patient being seen for Follow-up Patient Active Problem List Diagnosis Multiple premature ventricular complexes Family History Problem Relation Name Age of Onset Heart failure Mother's Brother Heart failure Maternal Grandmother Social History Tobacco Use Smoking status: Never Smokeless tobacco: Never Substance Use Topics Alcohol use: Never Drug use: Never HPI Visit of 05/26/2019: Hero is seen in follow up via telemedicine, in the presence of his mother. He is a 24 yo man who was recently evaluated on 04/11/2019 by FESTUS Curiel due to PVC found on the holter monitor. He was given metoprolol succinate 12.5 mg daily. He has been doing well with no symptoms. His mother is worried about the ADHD medications and whether they can cause PVCs and tachycardia. She is worried that he may have what her father had. PMH: mild MRDD, premature , ADHD PSH- eye surgery - no pertinent cardiac surgery Social- never a smoker, denied ETOH or illicit drugs FMH- his grandfather had an LVAD due to NICMP, no early CAD. Blood testing 04/11/2019: normal renal function and electrolytes including Mg, normal thyroid function. Echo 04/08/2019: Normal LV function and EF Borderline LVH no significant valvular abnormality Holter 03/21/2019: Sinus tachycardia- max rate 140. Low rate 42 bpm PVC's, bigeminy, trigeminy 31,248, 4 beat and 3 beat NSVT PVC burden 14.2%. Update 07/31/2019: He is seen in follow up via telemedicine. Today he's seen to review the ECG and holter results. He has had no change is his status since last visit of 05/26/2019 His mother says that one time he was mowing the lawn and he had dyspnea but that was short lived. Otherwise no issues. No dizziness. No palpitations. ECG 07/22/2019: sinus rhythm, nonspecific T-wave abnormalities. 48 hour Holter 07/22/2019: sinus rhythm with frequent ventricular ectopy and PVC burden of 5.7%. Update 11/03/2019: He is seen in follow-up via telemedicine. He has been doing well since last visit. No issues. No chest pain, no dyspnea, no dizziness. Dr. Phelps reduced concerta to 36 mg daily. Holter monitor 09/24-: 4% PVC burden. Update 03/01/2020: He is seen in follow-up. The visit is in the presence of his mother. He reports that he has been reasonably well. He takes the metoprolol succinate 25 mg daily. He does not feel significant palpitations. He does report shortness of breath on exertion. NYHA class II. Holter monitor 02/03/2020: PVC burden 10.45%. The PVCs appear to be monofocal. Update 04/27/2020: He is seen in follow-up. The visit is in the presence of his mother. He has been doing clinically well. At last visit I increased metoprolol succinate to 37.5 mg daily due to his Holter monitor showing a PVC burden of 10.45%. I rechecked an echocardiogram and Holter monitor. Echocardiogram 04/08/2020: Normal ventricular function, no valvular dysfunction, no pericardial effusion. Holter monitor 04/13/2020-04/16/2020: Predominant rhythm was sinus bradycardia to sinus tachycardia. Maximum heart rate was 113 bpm, minimum heart rate was 41 bpm, average heart rate was 62 bpm, PVC burden 3.4%. Update 10/18/2020: He is seen in follow-up. The visit is in the presence of his mother. He has been doing well. He has no symptoms of chest pain or shortness of breath. Holter monitor 09/27-09/30 2020: Sinus rhythm with rare isolated premature ventricular contractions [burden 0.22%]. No other arrhythmias were seen during the 3-day monitoring period. Update 12/20/2022: He is seen in follow-up. Last visit with me was 10/18/2020. He was seen on 11/22/2021 in our clinic by nurse practitioner Indira Curiel. Today the visit is in the presence of his mother. He has been doing well. He has no chest pain, shortness of breath, dizziness or lightheadedness or palpitation. No leg swelling. Review of Systems All other systems reviewed and are negative. Objective Visit Vitals BP 102/58 (BP Location: Left arm, Patient Position: Sitting) Pulse 62 Ht 1.88 m (6' 2 ) Wt (!) 142 kg (312 lb 3.2 oz) SpO2 99% BMI 40.08 kg/m??? Smoking Status Never BSA 2.72 m??? Physical Exam Constitutional: Appearance: He is well-developed. He is obese. He is not ill-appearing. HENT: Head: Normocephalic and atraumatic. Nose: Nose normal. Eyes: General: No scleral icterus. Pupils: Pupils are equal, round, and reactive to light. Neck: Thyroid: No thyromegaly. Vascular: No JVD. Cardiovascular: Rate and Rhythm: Normal rate and regular rhythm. Pulses: Radial pulses are 2+ on the right side and 2+ on the left side. Heart sounds: Normal heart sounds. No murmur heard. No friction rub. No gallop. Pulmonary: Effort: Pulmonary effort is normal. No respiratory distress. Breath sounds: Normal breath sounds. No wheezing or rales. Chest: Chest w (more content not included)... [facility] Summary Purpose Family History No Family History Records FoundNo Family History Records Found Advance Directives No Advanced Directives Records FoundNo Advanced Directives Records Found Additional Source Comments (unrecognized sect ion and content) No Status Records FoundNo Status Records Found INFORMATION SOURCE (unrecogn ized section and content) DATE CREATED AUTHOR 12/15/2021 [facility] DATE CREATED AUTHOR 'S ORGANIZ ATION 08/28/2023 [place] FOR RECORDS PERTAINING TO PATIENTS WHO ARE OR HAVE BEEN ENROLLED IN A CHEMICAL DEPENDENCY/SUBSTANCEABUSE PROGRAM, SOME INFORMATION MAY BE OMITTED. This clinical summary was aggregated from multiple sources. Caution should be exercised in using it in the provision of clinical care. This summary normalizes information from multiple sources, and as a consequence, information in this document may materially change the coding, format and clinical context of patient data. In addition, data may be omitted in some cases. CLINICAL DECISIONS SHOULD BE BASED ON THE PRIMARY CLINICAL RECORDS. [employer] provides no warranty or guarantee of the accuracy or completeness of information in this document.
== END 2024-10-27 08:55 | disposition home or self-care (01) ==
LOC: CARD 08:54
PROVIDERS: PCP Family Medicine; Visit Provider Internal Medicine Interventional Cardiology
DX: I49.3 Ventricular premature depolarization (principal)
CPT/HCPCS: 93306